=== PATIENT | male | born 1935 | race African-American/Black ===

== ENCOUNTER 2021-01-09 04:48 | Day surgery (SDC) | payer OTHER, BC ==
[2021-01-06 14:33] VITALS: BMI 20.2
[2021-01-09] MEDS ORDERED: EPHEDRINE SULFATE/0.9% NACL/PF 50 MG/10 ML SYRINGE NR ONE (09:38)
[2021-01-09] MEDS ORDERED: ceFAZolin SODIUM 1 GM VIAL IVPB ONE (09:50)
[2021-01-09] MEDS ORDERED: BACITRACIN 15 GM TUBE TOPICAL OINTMENT ONE (10:42)
[2021-01-09] MEDS ORDERED: BACITRACIN 15 GM TUBE TOPICAL OINTMENT TP ONE (11:05)
[2021-01-09] MEDS ORDERED: ONDANSETRON 4 MG/2 ML VIAL IVPUSH PRN (11:47)
[2021-01-09] MEDS ORDERED: oxyCODONE HCL 5 MG TABLET PO PRN (11:47)
[2021-01-09] MEDS ORDERED: LACTATED RINGERS SOLUTION 1,000 ML IV SCH (12:00)
[2021-01-09 13:24] VITALS: TEMP 98
[2021-01-09 14:24] VITALS: BP 134/65; PULSE 88
== END 2021-01-09 15:20 | disposition home or self-care (01) ==
LOC: JASU-SURG 04:48
PROVIDERS: ATTEND Urology
PROC: 0V503ZZ Destruction of Prostate, Percutaneous Approach (ICD-10-PCS; principal; 2021-01-09 09:30)
DX: C61 Malignant neoplasm of prostate (principal)
CPT/HCPCS: 55873; C2618; 94760